=== PATIENT | male | born 1965 | race Caucasian/White ===

== ENCOUNTER 2021-03-23 03:04 | Inpatient (IN) | payer OTHER, SELFPAY ==
[2021-03-23] VITALS (23 sets, daily range): BP systolic 122–154; BP diastolic 75–113; PULSE 70–100; RESP 14–26; TEMP 36.2–37; O2SAT 83–96; BMI 67.2; BMI 66.6
--- NOTE | 2021-03-23 03:12 | RAD_ITS ---
STUDY: X-RAY CHEST REASON FOR EXAM: Male, 55 years old. Wheezing, hypoxia after chemical exposure TECHNIQUE: Single AP portable view of the chest. 2 images. COMPARISON: December 14, 2013. FINDINGS: No focal infiltrates or effusions. No pneumothorax. Normal size heart. Normal mediastinum and sherry. Normal visualized pulmonary arteries. Normal visualized aortic arch and descending thoracic aorta. Normal visualized thoracic spine. Normal visualized ribs, clavicles, and shoulders. There is no demonstrated abnormality of the visualized soft tissue structures of the upper abdomen. RAD/Chest 1 View (Portable) IMPRESSION: No acute cardiopulmonary disease. Electronically Signed: Robin Randall MD at 4:25 EDT , Service support ,
--- NOTE | 2021-03-23 03:13 | EKG12_ITS ---
Test Reason : SOB Blood Pressure : / mmHG Vent. Rate : 078 BPM Atrial Rate : 078 BPM P-R Int : 166 ms QRS Dur : 100 ms QT Int : 392 ms P-R-T Axes : 039 032 029 degrees QTc Int : 446 ms Normal sinus rhythm Normal ECG Confirmed by DEBORAH COLLADO, WHITNEY ([id number]), fashion editor RILEY OSMAN ([id number]) on 03/27/2021 10:22:13 AM Referred By: Confirmed By:WHITNEY CABRERA MD
[2021-03-23] MEDS: Ipratropium/Albuterol Sulfate 3 ML AMPUL.NEB INHALATION ×5 (03:17→18:41)
[2021-03-23] MEDS: Albuterol 2.5 MG/3 ML VIAL.NEB. INHALATION ×3 (03:22)
[2021-03-23] MEDS: MethylPREDNISolone 125 MG/2 ML Vial IV (03:35)
[2021-03-23 03:41] LABS: Allen Test Positive; Base Excess 1 mmol/L (-2 to +2); Bicarbonate 25.9 mmol/L (22-26); Blood Gas Specimen Type ART; O2 Delivery Device Cannula; PO2 93 mmHG (75-100); SITE R Radial; SO2 97 % (95-99); Total Carbon Dioxide 27 mmol/L; pCO2 41.3 mmHg (35-45); pH 7.41 (7.35-7.45)
[2021-03-23 03:44] LABS: Absolute Lymphocyte Count 1.25 X10^3/uL (0.83-4.51); Absolute Neutrophil Count 5.1 X10^3/uL (2.0-7.7); Basophil# 0.04 X10^3/uL; Basophil% 0.5 % (0-1); Eosinophil# 0.32 X10^3/uL; Eosinophils% 4.4 % (0-5); Hematocrit 44.2 % (40-54); Hemoglobin 14.3 g/dL (13.0-16.5); Lymphocyte # 1.25 X10^3/ul (0.83-4.51); Lymphocyte % 17.2 % (19-41); Mean Corp Hgb Conc 32.4 g/dL (32-36); Mean Corpuscular Hgb 28.6 pg (27.0-32.0); Mean Corpuscular Volume 88.4 fL (80-94); Mean Platelet Vol. 9.7 fl (6.2-12.0); Monocyte# 0.55 X10^3/uL; Monocyte% 7.6 % (0-10); NRBC Flagged by Analyzer 0 % (0-5); Neutrophil # 5.09 X10^3/uL (2.7-7.7); Neutrophil % 69.9 % (47-70); Platelet Count 212 K/mm3 (150-450); RBC Distribution Width CV 13.6 % (11.6-14.6); RBC Distribution Width SD 44.3 fl (35.1-43.9); White Blood Count 7.3 K/mm3 (4.4-11.0)
--- NOTE | 2021-03-23 03:45 | EDS_ITS ---
HPI History of Present Illness Chief Complaint: Shortness of Breath Informant: patient Onset/Context/Timing Onset: Yesterday Context: sudden Timing: Continuous Quality: Positive for Dyspnea on exertion and Wheezing Current Severity: Moderate Maximum Severity: Severe Worsened by: Exertion Associated Symptoms Negative for cough, rhinorrhea, post nasal drip, ear pain, fever, sore throat, subjective, chills or sweats Chest Pain: Positive for None Narrative Narrative: Patient is a 55-year-old morbidly obese male with history of obstructive sleep apnea who developed the abrupt onset of shortness of breath after exposure to chloride dioxide at work. He presents because he is having trouble breathing. Upon arrival pulse ox was 83%. Patient appears tachypneic. Vital signs are remarkable for rapid respiratory rate. He denies HEENT symptoms. He does report shortness of breath and wheezing. He reports [place] exertion. He has no other complaints. He is on no medicines. PE Risk Factors: Negative for Cancer, OCP + Smoking + > 35, Prior DVT or PE, Recent immobilization, Recent surgery and Recent travel Prior similar symptoms: No Recent Illness/Hospitalization: No PFSH PFSH Home Medications NK 03/23/21 [History Last Taken Unknown] Allergy/AdvReac Type Severity Reaction Status Date / Time ibuprofen [From Advil] Allergy Anaphylaxis Verified 03/23/21 03:06 Social History (Updated 03/23/21 @ 03:[address] Avila Lambert MD) household members: spouse housing: house Smoking Status: Never smoker alcohol intake: current alcohol intake frequency: other substance use type: does not use ROS ROS ED Constitutional Constitutional ED: Denies chills, fever(s), sweats or weight loss Eyes Eyes: Denies blurry vision, change in vision or diplopia ENT ENT ED: Denies ear pain or sore throat Cardiovascular Cardiovascular: Denies chest pain, orthopnea, palpitations, paroxysmal nocturnal dyspnea or racing heartbeat Respiratory/Chest Respiratory/Chest: Reports cough, dyspnea and dyspnea on exertion; Denies orthopnea, paroxysmal nocturnal dyspnea or sputum Gastrointestinal Gastrointestinal: Denies abdominal pain, diarrhea, nausea or vomiting Genitourinary Genitourinary ED: Denies dysuria, hematuria or urinary frequency Musculoskeletal Musculoskeletal: Denies arthralgias, myalgias or neck pain Integumentary Denies abscess, Abrasions or rash Neurologic Neurologic: Denies headache(s) or weakness Hematologic/Lymphatic Hematologic/Lymphatic: Denies easy bleeding or easy bruising EXAM Physical Exam Const Vital Signs: 03/23/21 03:07 03/23/21 03:09 03/23/21 03:20 Temperature 97.2 F L Temperature Source Temporal Pulse Rate 79 76 Respiratory Rate 26 H 24 H 23 H Respiratory Effort Blood Pressure 142/113 H Blood Pressure Mean 122 Pulse Ox 83 96 Oxygen Delivery Method Room Air Nasal Cannula Oxygen Flow Rate (L/min) 2 03/23/21 03:40 03/23/21 04:23 Temperature 97.8 F Temperature Source Temporal Pulse Rate 78 Respiratory Rate 20 H Respiratory Effort Short of Breath Blood Pressure 122/83 H Blood Pressure Mean 96 Pulse Ox 96 Oxygen Delivery Method Oxygen Flow Rate (L/min) Positive well nourished, well developed and obese General Appearance ED: well developed; Negative for NAD Nutritional Appearance: obese HEENT Reports TM's clear and moist mucous membranes HEENT Narrative: Ears normal. Nares patent. atraumatic Tympanic Membrane ED: Yes TM's clear Eyes PERRL and EOMs intact bilaterally General Eye ED: Negative for pale conjunctiva or scleral icterus Neck no lymphadenopathy, supple, no meningeal signs and no JVD Resp No normal respiratory effort and No clear to auscultation bilaterally Auscultation: wheezes expiratory wheezes and throughout Cardio regular rate, regular rhythm, S1 normal heart sound, S2 normal heart sound and n o murmurs GI non-tender, non-distended and no masses Auscultation: normoactive bowel sounds Palpation: soft Back/Spine no CVA tenderness and normal to inspection Extremity normal to inspection General Extremety ED: Negative for edema or tenderness General Extremity: Negative for edema Neuro oriented x3, CN's II-XII intact bilaterally and no sensory deficits noted Sensorium / Orientation: alert Motor Exam: strength 5/5 throughout Psych mental status grossly normal Thought Process: normal thought process Skin no wounds Lesions: no lesions Rashes: no rashes MDM MDM MDM Narrative Medical decision making narrative: Patient presents with auditory distress after exposure to chlorine dioxide. Patient has a chemical pneumonitis causing hypoxia and wheezing. He was treated with Solu-Medrol, DuoNeb, albuterol. Blood work was ordered and chest x-ray. Patient will require admission. ABG was obtained to assess acid-base status, AA gradient and to rule out CO2 retention since she has history of obstructive sleep apnea. Since patient has hypoxia from chemical pneumonitis will contact hospitalist for admission. Lab Data Attestation: I reviewed the patient's lab results. Labs: Laboratory Results - last 24 hr 03/23/21 03/23/21 03/23/21 03:35 03:35 03:35 WBC 7.3 RBC 5.00 Hgb 14.3 Hct 44.2 MCV 88.4 MCH 28.6 MCHC 32.4 RDW Std Deviation 44.3 H RDW Coeff of Ramesh 13.6 Plt Count 212 MPV 9.7 Immature Gran % (Auto) 0.400 Neut % (Auto) 69.9 Lymph % (Auto) 17.2 L [place] % (Auto) 7.6 Eos % (Auto) 4.4 Baso % (Auto) 0.5 Absolute Neuts (auto) 5.1 Absolute Lymphs (auto) 1.25 Nucleated RBC % 0 Sodium 137 Potassium 4.2 Chloride 104 Carbon Dioxide 29.0 Anion Gap 4 L BUN 18 Creatinine 0.71 Estim Creat Clear Calc 107.33 Est GFR (MDRD) Af Amer 149 Est GFR (MDRD) Non-Af 123 BUN/Creatinine Ratio 25.4 H Glucose 123 H Lactic Acid 1.0 Calcium 8.6 Arterial blood grass reveals no acid-base disturbance. pH is 7.41, PCO2 41.7, PaO2 92.7, bicarb 25.9 with a base excess of +1.2 and a 97.2% saturation on 3 L via nasal cannula. This does reveal increased AA gradient. ABG Data ABG results: ABG 03/23/21 03:35 Specimen Type ART Sample Site R Radial pH 7.41 Bicarbonate Actual 25.9 Total CO2 27 Base Excess 1 O2 Saturation 97 ABG pCO2 41.3 ABG pO2 93 Nathaniel Test Positive O2 Delivery Device Cannula Liter Flow 3.0 Radiography Chest X-Ray - ED: 1 View, Read by ED Physician (X-ray interpreted by me at 0411.), Heart, Lungs (There is increased interstitial markings which may be due to body habitus and the fact that this is a portable film versus chemical pneumonitis.), Mediastinum and Bony Structures Diagnostic Testing: Radiology Impression Chest X-Ray 03/23/21 03:12 IMPRESSION: No acute cardiopulmonary disease. Electronically Signed: Robin Randall MD at 4:25 EDT , Service support , EKG Initial EKG: Attestation: I personally reviewed and interpreted this EKG as follows: Interpretation: Sinus Rhythm (The EKG is normal. Normal sinus rhythm ventricular to 78. HI interval 166 ms. QS duration 100 ms. QT duration 3 to 92 ms. [place] is normal.) Discharge Plan Dx/Rx/DC Orders Clinical Impression: Acute chemical pneumonitis, Acute respiratory failure with hypoxia, Acute bronchospasm Disposition Disposition: Acute Care Hospital [facility]
[2021-03-23 03:56] LABS: Anion Gap 4 (5-15); BUN 18 mg/dL (7-18); BUN/Creat Ratio 25.4 RATIO (10-20); Calcium,Total 8.6 mg/dL (8.5-10.1); Chloride 104 mmol/L (98-107); Creatinine, Serum 0.71 mg/dL (0.70-1.30); EST Glomerular Filtration Rate 123 mL/min (>60); Est Glom Filt Rate - Afr Amer 149 mL/min (>60); Estimated Creatinine Clearance 107.33 ml/min; Glucose 123 mg/dL (74-106); Potassium 4.2 mmol/L (3.5-5.1); Sodium Level 137 mmol/L (136-145)
--- NOTE | 2021-03-23 04:20 | HP.PCM.HOS_ITS ---
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 Upon initial ED presentation patient was significantly working to breathe per discussion with ED physician with notable wheezing, accessory muscle usage and evidence of distress. Work-up in the ED included T 97.2, heart rate 79, BP 142/113, respiratory rate 26, initially 83% on room air with improvement to 96% on 2 L nasal cannula, CBC with WBC 7.3, hemoglobin 14.3, platelet 212 without marked shift, unremarkable ABG, BMP with glucose 123 otherwise not marked appearing, pending lactic acid upon evaluation, rapid negative Covid negative, chest x-ray with no acute cardiopulmonary findings. In the ED patient ministered aerosols and steroid therapies. Patient significantly improved in the ED following interventions. COUNTS INCLUDE 234 BEDS AT THE [facility] Medical History (Updated 03/23/21 @ 06:[address] Nayeli Mayers MD) Asthma CPAP (continuous positive airway pressure) dependence Morbid obesity Non-smoker Sleep apnea Home Medications NK 03/23/21 [History Last Taken Unknown] Allergy/AdvReac Type Severity Reaction Status Date / Time ibuprofen [From Advil] Allergy Anaphylaxis Verified 03/23/21 03:06 Family History (Updated 03/23/21 @ 06:[address] Nayeli Mayers MD) Mother Heart disease no significant family history (Patient denies any marked paternal family history including HD, DM, CA.) Surgical History (Updated 03/23/21 @ 06:[address] Nayeli Mayers MD) H/O umbilical hernia repair History of appendectomy Social History (Updated 03/23/21 @ 03:[address] Avila Lambert MD) household members: spouse housing: house Smoking Status: Never smoker alcohol intake: current alcohol intake frequency: other substance use type: does not use ROS ROS Narrative Admission Review of Systems: CONSTITUTIONAL: No weight loss, fever, chills, + weakness or fatigue. HEENT: Eyes: No visual loss, blurred vision, double vision or yellow sclerae. Ears, Nose, Throat: No hearing loss, sneezing, congestion, runny nose or sore throat. SKIN: No rash or itching, lesions, wounds. CARDIOVASCULAR: No chest pain, chest pressure or chest discomfort, palpitations, edema, orthopnea, syncopal events. RESPIRATORY: + shortness of breath, cough without marked sputum, wheezing, No hemoptysis. GASTROINTESTINAL: No anorexia, nausea, vomiting or diarrhea, abdominal pain, melena, BRBPR. GENITOURINARY: No dysuria, frequency, urgency or retention. NEUROLOGICAL: No headache, dizziness, syncope, paralysis, ataxia, numbness or tingling in the extremities, focal weakness, change in bowel or bladder control, seizure. MUSCULOSKELETAL: No muscle, back pain, joint pain or stiffness. HEMATOLOGIC: No anemia, bleeding or bruising. LYMPHATICS: No enlarged nodes. No history of splenectomy. PSYCHIATRIC: No history of depression or anxiety. ENDOCRINOLOGIC: No reports of sweating, cold or heat intolerance. No polyuria or polydipsia. ALLERGIES: + history of asthma, hives, eczema or rhinitis. Vital Signs Vital Signs Vital Signs: 03/23/21 03:07 03/23/21 03:09 03/23/21 03:20 Temperature 97.2 F L Temperature Source Temporal Pulse Rate 79 76 Respiratory Rate 26 H 24 H 23 H Respiratory Effort Blood Pressure 142/113 H Blood Pressure Mean 122 Pulse Ox 83 96 Oxygen Delivery Method Room Air Nasal Cannula Oxygen Flow Rate (L/min) 2 03/23/21 03:40 Temperature Temperature Source Pulse Rate Respiratory Rate Respiratory Effort Short of Breath Blood Pressure Blood Pressure Mean Pulse Ox Oxygen Delivery Method Oxygen Flow Rate (L/min) Weight Weight: 416 lb 10.778 oz Body Mass Index (BMI) 67.2 Physical Exam Narrative Physical Examination: General: Awake, alert, oriented x 3 and cooperative, seated upright in the ED bed, fatigued, respiratory distress has improved, currently work of breathing/accessory muscle usage improved. Skin: Normal color, normal turgor, no icterus, no cyanosis. HEENT: AT/NC, EOMI, PERRLA, mildly dry MM, no carotid bruits or JVD noted; however, thickened neck makes examination difficult. Lungs: Diminished, > bases, ongoing wheezing inspiratory and expiratory, respiratory distress improving, no rales or rhonchi. Heart: Regular rate and rhythm; no gallop, rub audible. Abdomen: Soft, morbidly obese, NTTP, ND but habitus makes examination difficult, distant normal BS, unable to discern HSM secondary to habitus. Extremities: No cyanosis, clubbing, or edema. Neurological: Patient awake, alert, oriented as noted, cognitive function intact; pupils equally reactive to light and accommodation, cranial nerves II- XII grossly normal, moving all 4 extremities, no focal deficits, strength improving, had been severely reduced secondary to acute presentation. Psychiatric: Affect appears fatigued, respiratory distress improved, no acute evidence of depressive or anxiety feelings. Results Lab / Micro Data Result Diagrams: 03/23/21 03:35 03/23/21 03:35 Labs: Laboratory Results - last 24 hr 03/23/21 03:35: WBC 7.3, RBC 5.00, Hgb 14.3, Hct 44.2, MCV 88.4, MCH 28.6, MCHC 32.4, RDW Std Deviation 44.3 H, RDW Coeff of Ramesh 13.6, Plt Count 212, MPV 9.7, Immature Gran % (Auto) 0.400, Neut % (Auto) 69.9, Lymph % (Auto) 17.2 L, [place] % (Auto) 7.6, Eos % (Auto) 4.4, Baso % (Auto) 0.5, Absolute Neuts (auto) 5.1, Absolute Lymphs (auto) 1.25, Nucleated RBC % 0 03/23/21 03:35: Sodium 137, Potassium 4.2, Chloride 104, Carbon Dioxide 29.0, An ion Gap 4 L, BUN 18, Creatinine 0.71, Estim Creat Clear Calc 107.33, Est GFR (MDRD) Af Amer 149, Est GFR (MDRD) Non-Af 123, BUN/Creatinine Ratio 25.4 H, G lucose 123 H, Calcium 8.6 Micro: Microbiology 03/23/21 03:25 Nasal Secretion SARS-CoV-2 Antigen (Rapid) - Final ABG Data ABG results: ABG 03/23/21 03:35 Specimen Type ART Sample Site R Radial pH 7.41 Bicarbonate Actual 25.9 Total CO2 27 Base Excess 1 O2 Saturation 97 ABG pCO2 41.3 ABG pO2 93 Nathaniel Test Positive O2 Delivery Device Cannula Liter Flow 3.0 Assessment & Plan Assessment/Plan (1) Acute chemical pneumonitis: (2) Acute respiratory failure with hypoxia: (3) Acute bronchospasm: PLAN: The patient is a 55 y/o M w/ PMHx: Morbid Obesity, CORNELIUS who presents to the [facility] ED on 03/23/21 with 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 1. Acute Hypoxic Respiratory Failure secondary to Acute Chemical Exposure Pneumonitis with associated Acute Bronchospasms with Acute on Chronic Asthma Exacerbation: Will admit to MS, maintain on oxygen with wean as tolerated to room air, continue ATC duonebs, PRN albuterol, IV methylprednisolone, HOB, IS parameters. Discussed at length and strongly recommended patient wear masks appropriate for work with strong chemicals to avoid exposure in the future. 2. Morbid Obesity: Weight loss and lifestyle changes encouraged, nutrition consulted. 3. CORNELIUS: CPAP q HS. 4. DVT prophylaxis: SCDs, lovenox. Charges/Coding Visit Charges Inpatient E&M: 83683 Init Hosp L2
[2021-03-23 05:48] LABS: Procalcitonin 0.04 ng/mL (0.00-0.09)
[2021-03-23] MEDS: 0.9% Normal Saline 1,000 ML 100 ML IV ×2 (06:35→16:31)
--- NOTE | 2021-03-23 06:35 | CPS ---
Pt has own CPAP @home and will ask someone to bring his machine in. R.T. did let him know that if someone can't bring his, he can use our machine.
[2021-03-23 06:50] LABS: Absolute Lymphocyte Count 0.74 X10^3/uL (0.83-4.51); Absolute Neutrophil Count 7.7 X10^3/uL (2.0-7.7); Basophil# 0.04 X10^3/uL; Basophil% 0.5 % (0-1); Eosinophil# 0.07 X10^3/uL; Eosinophils% 0.8 % (0-5); Hematocrit 45.4 % (40-54); Hemoglobin 14.8 g/dL (13.0-16.5); Lymphocyte # 0.74 X10^3/ul (0.83-4.51); Lymphocyte % 8.4 % (19-41); Mean Corp Hgb Conc 32.6 g/dL (32-36); Mean Platelet Vol. 9.9 fl (6.2-12.0); Monocyte# 0.23 X10^3/uL; Monocyte% 2.6 % (0-10); NRBC Flagged by Analyzer 0 % (0-5); Neutrophil # 7.66 X10^3/uL (2.7-7.7); Neutrophil % 87.1 % (47-70); Platelet Count 216 K/mm3 (150-450); RBC Distribution Width CV 13.7 % (11.6-14.6); RBC Distribution Width SD 45.1 fl (35.1-43.9); White Blood Count 8.8 K/mm3 (4.4-11.0)
[2021-03-23 07:23] LABS: AST(SGOT) 22 U/L (15-37); Alanine Aminotransfer ALT/SGPT 38 U/L (16-61); Albumin, Serum 3.8 g/dL (3.2-5.0); Alkaline Phosphatase 44 U/L (45-117); Anion Gap 7 (5-15); BUN 16 mg/dL (7-18); Calcium,Total 8.5 mg/dL (8.5-10.1); Chloride 105 mmol/L (98-107); Creatinine, Serum 0.76 mg/dL (0.70-1.30); EST Glomerular Filtration Rate 113 mL/min (>60); Est Glom Filt Rate - Afr Amer 137 mL/min (>60); Estimated Creatinine Clearance 100.27 ml/min; Globulin 3.8 g/dL (2.2-4.2); Glucose 152 mg/dL (74-106); Potassium 4.1 mmol/L (3.5-5.1); Protein, Total 7.6 g/dL (6.4-8.2); Sodium Level 136 mmol/L (136-145)
[2021-03-23] MEDS: Enoxaparin 40 MG/0.4 ML Syringe SC ×2 (09:32→21:46)
[2021-03-23] MEDS: Famotidine 20 MG Tablet PO ×2 (09:33→21:46)
--- NOTE | 2021-03-23 11:10 | CPS ---
Pt's is bringing his CPAP to [facility] for pt to use tonight if he doesn't get discharged.
--- NOTE | 2021-03-23 12:30 | CASEMGMT ---
NATY ALVAREZ Assessment: Face to Face with pt for initial transition planning/care coordination assessment. NATY ALVAREZ introduced self and role at [facility], pt voices understanding and consents to assessment. Pt is A/O x4 and answers all questions appropriately at this time. Pt sitting up in chair in no distress with at bedside. Care providers, pharmacy, and demographics verified/updated. Admitting Dx: Resp failure, pneumonitis PCP:Mat Specialists: Pt denies having any specialists. Preferred Pharmacy: [facility] while inpatient Insurance: [employer], [employer] Prescription Benefit: yes LW/HPOA: Pt states he has a LW but not a DPOA. Pt is aware that his LW is not on file at [facility] and he may bring in to have scanned into the chart. LNOK: Jodi Iqbal, Living Arrangements: Pt lives with in a two story house with no steps to enter. Pt states he is I in ADL's and denies concerns at home. Transportation: Pt drives self and denies concerns at home. DME/HHC/SNF: Pt has a CPAP at home. He uses [facility] for his CPAP. Pt denies hx of HHC or SNF stays. 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 Pt provided with a local in network list of DME companies. Pt chose [facility] should he need O2. Pt states no concerns with going home at time of dc. Pt states no further concerns/needs. CM to follow. Advised pt to ask CM if any further question/concerns/needs arise, voices understanding. Pt Goal: Home Plan: Home
--- NOTE | 2021-03-23 12:49 | CHAPLAIN ---
Type of Pastoral Visit _x__ Initial Visit ___ Follow-up Visit ___ On-call Visit ___ General Patient Visit ___ Spiritual Assessment ___ Family Conference ___ Bereavement ___ Rapid Response ___ Code Blue ___ Other (describe below) Pastoral Care Referral From _x__ Patient ___ Family ___ Nurse ___ Physician ___ Photovoltaic Testing Technician ___ Orange Grower ___ Other (describe below) Sacrament/Intervention _x__ Active listening ___ Anointing ___ Roman Catholic ___ Bereavement ___ Communion _x__ Anaid exploration ___ ___ Life review _x__ Prayer ___ Reconciliation ___ Sacrament of Sick _x__ Supportive presence ___ Wedding ___ Other (describe below) Pastoral Comments
--- NOTE | 2021-03-23 13:58 | PN.HOSP_ITS ---
Hospitalist Note Mr. Iqbal is a 55-year-old male who was admitted to [facility] early on the a.m. of 03/23/2021. 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 He developed worsening of dyspnea and presented to the emergency department the day after his exposure with severely worsening wheezing and coughing. His oxygen saturations were 83% on room air upon admission this improved to 96% on 2 L nasal cannula. Upon evaluation later in the day he was significantly better but still hypoxic on room air with an oxygen saturation of 85%. We will continue steroids, check a D-dimer and if positive check CTA of the chest, and continue oxygen supplemention.
[2021-03-23 14:53] LABS: D-Dimer Quantitative (DVT/PE) 0.35 FEU/ug/m (0.27-0.49)
[2021-03-24] MEDS: 0.9% Normal Saline 1,000 ML 100 ML IV (01:20)
[2021-03-24 03:16] VITALS: PULSE 70
[2021-03-24 03:41] VITALS: BP 146/89; PULSE 69; RESP 16; TEMP 36.4; O2SAT 97
[2021-03-24] MEDS: Ipratropium/Albuterol Sulfate 3 ML AMPUL.NEB INHALATION (07:06)
[2021-03-24 08:16] VITALS: PULSE 82; RESP 19
--- NOTE | 2021-03-24 09:24 | DS.PCM_ITS ---
Providers Date of Admission: 03/23/21 Primary Care Physician: Dr. Babita Rivero MD Reason For Visit: RESP FAILURE, PNEUMONITIS Diagnosis Discharge Diagnosis (1) Acute chemical pneumonitis: Status: Acute Code(s): J68.0 - Bronchitis and pneumonitis due to chemicals, gases, fumes and vapors (2) Acute respiratory failure with hypoxia: Status: Acute Code(s): J96.01 - Acute respiratory failure with hypoxia (3) Acute bronchospasm: Status: Acute Code(s): J98.01 - Acute bronchospasm Medications at Discharge Home Medications prednisone 40 mg PO DAILY #6 tab 03/24/21 Hospital Course Operations None Procedures None Summary of Care Provided Minutes Spent on Discharge: 25 Hospital Course: Mr. Iqbal is a 55-year-old white male who presented to the emergency department [facility] on 03/23/2021 with a chief complaint of dyspnea. 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 He developed worsening shortness of breath and wheezing through the night so he came to the emergency department for evaluation. Upon initial presentation he demonstrated significantly increased work of breathing and he was hypoxic on room air with oxygen saturations of 93%. His oxygen saturation did improve to 96% on 2 L nasal cannula. His lab work was overall unremarkable. A D-dimer was assessed and was negative. He was admitted to the medical floor and treated with aerosols and steroid therapy. He had significantly improved later that day but still was requiring supplemental oxygen while at rest with oxygen saturations at 85% on room air. We maintained as needed aerosols and steroids. He was reevaluated on the morning of 03/24/2021 and found to have an oxygen saturation of 95% on room air. He had no exertional drops in oxygenation. He was discharged home in stable condition with a quick taper of prednisone to complete 40 mg x 3 more days of steroid therapy. We discussed appropriate masking with exposure to chemicals and he agrees that they are going to reevaluate the situation to help prevent it from happening again. We also discussed his Covid vaccination status. He is currently nonvaccinated. We did recommend vaccination for him and he seemed receptive to this. He is to follow- up with his PCP in 1 week. Discharge diagnoses: Acute hypoxic respiratory insufficiency Chemical pneumonitis History of asthma CORNELIUS Super morbid obesity Physical Exam Const alert, oriented x3 and no apparent distress Constitutional Narrative: Morbidly obese white male sitting up in a chair at the bedside on room air, appears comfortable, nontoxic General Appearance: cooperative, comfortable, well kempt and well developed Orientation / Consciousness: awake Nutritional Appearance: morbidly obese HEENT normocephalic and head/scalp atraumatic Resp normal respiratory effort, no retractions, no use of accessory muscles and clear to auscultation bilaterally Resp Narrative: Distant but clear Cardio regular rate, regular rhythm, S1 normal heart sound, S2 normal heart sound, no murmurs, no rub, no gallops, no clicks and no JVD Cardio Narrative: Distant heart tones secondary to body habitus GI normal to inspection, nondistended, normoactive bowel sounds, soft to palpation, non-tender and non-distended Extremity no clubbing, cyanosis or edema Neuro oriented x3, moves all extremities and no focal motor deficits Sensorium / Orientation: awake and alert Speech: speech normal Psych affect normal Weight / BMI Weight Weight: 187.424 kg Body Mass Index (BMI) 66.6 ABG / Lab / Microbiology Data Result Diagrams: 03/23/21 06:30 03/23/21 06:30 Laboratory: Laboratory Results - last 24 hr 03/23/21 14:16: D-Dimer Quant (PE/DVT) 0.35 Microbiology: Microbiology 03/23/21 03:25 Nasal Secretion SARS-CoV-2 Antigen (Rapid) - Final D/C Instructions Discharge Diet: No restrictions Discharge Activity: Return to Normal Activity Return to work on: 03/27/21 Meaningful Use Info Meaningful Use Diagnoses (Choose all that apply): None applicable Discharge Plan Admission Admit Date/Time: 03/23/21 04:49 Primary Reason for Your Visit: Chemical Pneumonitis Attending Provider: Leti Beltran Primary Care Provider: Babita Rivero Discharge Orders/Prescriptions Prescriptions: New prednisone 20 mg tablet 40 mg PO DAILY Qty: 6 RF: 0 Referrals / Follow Up: Babita Rivero MD [Primary Care Provider] - In 1 Week (Hospital follow up) Disposition Disposition (needs filled in before D/C Order can be placed): Home, Self Care Charges/Coding Visit Charges Inpatient E&M: 65954 Disch Hosp
--- NOTE | 2021-03-24 09:31 | PCM.DC ---
Discharge Instructions Diet Discharge Diet: No restrictions Activity Return to work on:: 03/27/21 Follow Up Care Test Results: Test results from this visit will be discussed in further detail at your follow-up appointment, if applicable. Discharge Plan Admission Admit Date/Time: 03/23/21 04:49 Primary Reason for Your Visit: Chemical Pneumonitis Attending Provider: Leti Beltran Primary Care Provider: Babita Rivero Discharge Orders/Prescriptions Prescriptions: New prednisone 20 mg tablet 40 mg PO DAILY Qty: 6 RF: 0 Referrals / Follow Up: Babita Rivero MD [Primary Care Provider] - In 1 Week (Hospital follow up) Disposition Disposition (needs filled in before D/C Order can be placed): Home, Self Care
[2021-03-24 10:44] VITALS: O2SAT 89; O2SAT 93
[2021-03-24 10:47] VITALS: BP 138/72; PULSE 73; RESP 18; TEMP 37.7; O2SAT 93
--- NOTE | 2021-03-24 11:03 | PHA.DC.MC ---
Addendum entered and electronically signed by Chelsea Urbano 03/24/21 11:04: Patient would like medication delivered to his room. This [facility] called retail and spoke to Devang to request meds to beds delivery. Original Note: Pharmacy Service has performed discharge medication reconciliation and counseling for this patient. 1. PREDNISONE 40MG PO DAILY X 3 DAYS The patient's discharge medication list was reviewed for discrepancies and discrepancies were resolved. Home Medications prednisone 40 mg PO DAILY #6 tab 03/24/21 The patient was counseled on the following discharge medications and changes in medications for homegoing were reviewed. The Reason for Use, instructions for use, and potential side effects were reviewed for all new medications. The patient's questions regarding all of their medications were answered. The patient was able to verbally demonstrate an understanding of their discharge medications.
[2021-03-24] MEDS: Famotidine 20 MG Tablet PO (11:10)
[2021-03-24 11:19] VITALS: PULSE 79; RESP 21
== END 2021-03-24 11:45 | disposition home or self-care (01) | DRG 917 ==
LOC: ED 04:38 → MS3 05:00
PROVIDERS: Admitting Provider Family Medicine; Emergency Provider Emergency Medicine; PCP Internal Medicine; Visit Provider Internal Medicine
DX: T59.4X1A Toxic effect of chlorine gas, accidental (unintentional), initial encounter (principal); J96.01 Acute respiratory failure with hypoxia; J68.0 Bronchitis and pneumonitis due to chemicals, gases, fumes and vapors; Z68.44 Body mass index [BMI] 60.0-69.9, adult; G47.33 Obstructive sleep apnea (adult) (pediatric); E66.01 Morbid (severe) obesity due to excess calories; Y92.89 Other specified places as the place of occurrence of the external cause
CPT/HCPCS: 36415; 36600; 71045; 80048; 80053; 82803; 83605; 84145; 85025; 85379; 87426; 93005; 94640; 97802; 99251; 99285; J7030; A4216; G0463